=== PATIENT | male | born 1990 | race Hispanic/Latino ===

== ENCOUNTER 2019-06-29 17:57 | Emergency (ER) | payer SELFPAY ==
[2019-06-29 18:11] VITALS: TEMP 99.1
--- NOTE | 2019-06-29 18:17 | ED.PDOC ---
History of Present Illness - General Chief Complaint: Problem Stated Complaint: blood in urine,right groin pain Time Seen by Provider: 06/29/19 18:06 Source: patient Exam Limitations: no limitations - History of Present Illness Initial Comments: 28 yo M with hx of kidney stones presents for R flank pain onset 5 days ago, has now radiated into his abd, consistent with prior kidney stones in the past. Associated hematuria onset today. Associated n/v 2/2 pain, sharp pain when urinating. Reports good urine stream. Pt has always been able to pass his kidney stones on his own, has never had any procedures, is followed by a urologist who suggested that he defer from CT scans in the future 2/2 radiation. Denies f/c, cough, CP, SOB, diarrhea. Allergies/Adverse Reactions: Allergies Codeine Allergy (Verified 06/29/19 18:11) Ketorolac Tromethamine [From Toradol] Allergy (Verified 06/29/19 18:11) Home Medications: Ambulatory Orders Tamsulosin HCl [Flomax] 0.4 mg PO BEDTIME #14 cap 06/29/19 Tramadol HCl [Ultram] 50 mg PO Q6H PRN #6 tab 06/29/19 Review of Systems - Review of Systems Constitutional: Denies: chills, fever EENTM: States: no symptoms reported Respiratory: Denies: cough, short of breath Cardiology: Denies: chest pain, palpitations Gastrointestinal/Abdominal: States: abdominal pain, nausea, vomiting, other - R flank pain. Denies: diarrhea Genitourinary: States: hematuria, other - sharp pain when urinating. Denies: discharge, frequency Musculoskeletal: Denies: back pain, neck pain Skin: Denies: lesions, rash Neurological: Denies: headache, numbness, weakness Endocrine: Denies: increased thirst, increased urine Hematologic/Lymphatic: Denies: easy bleeding, easy bruising Past Medical History (General) - Patient Medical History Hx Stroke: No Hx Congestive Heart Failure: No Hx Diabetes: No Surgical History: appendectomy - Vaccination History Hx Influenza Vaccination: Yes - Social History Hx Tobacco Use: Yes Family Medical History - Family History Father Family History: Unknown Living Status: Unknown Physical Exam - Physical Exam General Appearance: Alert, Comfortable, No apparent distress, Well Developed, Well Nourished Neck: full range of motion, supple Respiratory: lungs clear, normal breath sounds, no respiratory distress, no accessory muscle use Cardiovascular/Chest: normal peripheral pulses, regular rate, rhythm, no edema, no gallop, no JVD, no murmur Peripheral Pulses: radial,right: 2+, radial,left: 2+ Gastrointestinal/Abdominal: normal bowel sounds, non tender, soft, no organomegaly, no pulsatile mass Back Exam: normal inspection, no CVA tenderness, no vertebral tenderness Extremity: normal range of motion, non-tender, normal inspection, no pedal edema, no calf tenderness Neurologic: no motor/sensory deficits, alert, normal mood/affect Skin Exam: normal color, warm/dry Lymphatic: no adenopathy Progress - Progress Progress: I have explained and reviewed all results with the pt. Pt is well appearing, resting comfortably in chair, pain controlled, sonido po. Has urinary strainer and nausea medication at home. I explained that emergent conditions may arise and to return to the ER for new, worsening, or any persistent conditions including but not limited to f/c, intractable n/v, abd pain. I've explained the importance of f/u for recheck, has urologist to follow up with. All questions and concerns addressed at this time. Pt understands and agrees with plan. Pt well appearing, NAD, is stable for discharge. Pam Manley MD Emergency Medicine Physician Billing Number [id number] - Results/Orders Results/Orders: 06/29/19 18:10 Urine Culture Stat Laboratory Results - last 24 hr 06/29/19 06/29/19 06/29/19 18:10 18:29 18:29 WBC 5.6 RBC 4.77 Hgb 13.4 L Hct 39.7 L MCV 83.4 MCH 28.2 MCHC 33.8 RDW 15.3 H Plt Count 325 MPV 9.2 Absolute Neuts (auto) 3.50 Absolute Lymphs (auto) 1.60 Absolute Monos (auto) 0.40 Absolute Eos (auto) 0.00 Absolute Basos (auto) 0.00 Neutrophils % 62.8 Lymphocytes % 29.4 Monocytes % 6.6 Eosinophils % 0.5 L Basophils % 0.7 Sodium 140 Potassium 3.7 Chloride 108 Carbon Dioxide 22 Anion Gap 13.7 BUN 14 Creatinine 0.75 BUN/Creatinine Ratio 18.7 Random Glucose 97 Serum Osmolality 279.8 Calcium 9.8 Total Bilirubin 0.5 AST 19 ALT 22 Alkaline Phosphatase 45 Serum Total Protein 7.9 Albumin 4.4 Globulin 3.5 Albumin/Globulin Ratio 1.3 Urine Color Red Urine Appearance Cloudy Urine pH 7.5 Ur Specific [place] 1.020 Urine Protein 30 Urine Glucose (UA) Negative Urine Ketones Negative Urine Blood Large H Urine Nitrite Negative Urine Bilirubin Negative Urine Urobilinogen 0.2 Ur Leukocyte Esterase Negative Urine RBC Tntc H Urine WBC Obscured by rbc's H Ur Epithelial Cells 1-3 Urine Bacteria 0 KUB: EXAM: KUB CLINICAL INDICATION: Kidney stone COMPARISON: There is no previous study for comparison. FINDINGS: A single view of the abdomen was obtained. There is a nonspecific bowel gas pattern with no radiographic evidence of bowel obstruction. There are no dilated loops of small bowel. There is no evidence of pneumoperitoneum or pathologic calcifications. IMPRESSION: No evidence of an acute intraabdominal process. Electronically signed by: Jethro Ray MD 06/29/2019 6:48 PM [employer] Vital Signs - 24 hr 06/29/19 18:07 Temperature 99.1 F Pulse Rate [ 94 H Right Brachial] Respiratory 20 Rate Blood Pressure 167/99 [Right Arm] O2 Sat by Pulse 99 Oximetry Departure - Departure Clinical Impression: Urolithiasis Qualifiers: Urinary calculus location: ureter Qualified Code(s): N20.1 - Calculus of ureter Time of Disposition: 19:15 Disposition: Discharge to Home or Self Care Health Concerns: Condition: fair Departure Forms: ED Discharge - Pt. Copy, Patient Portal Self Enrollment Instructions: DI for Kidney Stones Prescriptions: Tamsulosin HCl [Flomax] 0.4 mg PO BEDTIME #14 cap Tramadol HCl [Ultram] 50 mg PO Q6H PRN #6 tab PRN Reason: Pain Home Medications: Ambulatory Orders Tamsulosin HCl [Flomax] 0.4 mg PO BEDTIME #14 cap 06/29/19 Tramadol HCl [Ultram] 50 mg PO Q6H PRN #6 tab 06/29/19 Additional Instructions: Follow up: [facility] As needed, if symptoms worsen Your urologist Make appointment in two days for follow up
[2019-06-29] MEDS ORDERED: ACETAMINOPHEN IV 1000MG 100 ML ONE (18:42)
--- NOTE | 2019-06-29 18:49 | RAD ---
EXAM: KUB CLINICAL INDICATION: Kidney stone COMPARISON: There is no previous study for comparison. FINDINGS: A single view of the abdomen was obtained. There is a nonspecific bowel gas pattern with no radiographic evidence of bowel obstruction. There are no dilated loops of small bowel. There is no evidence of pneumoperitoneum or pathologic calcifications. IMPRESSION: No evidence of an acute intraabdominal process. Electronically signed by: Jethro Ray MD 06/29/2019 6:48 PM [employer]IST[employer] RN
[2019-06-29] MEDS: ACETAMINOPHEN IV 1000MG 1,000 MG in PREMIX BOTTLE 1 BOTTLE IVPB ONE (18:50)
[2019-06-29] MEDS: SODIUM CHLORIDE 0.9% 1000ML 1,000 ML IVS ONE (18:51)
[2019-06-29 19:32] VITALS: BP 147/87; O2SAT 100
== END 2019-06-29 19:45 | disposition home or self-care (01) ==
LOC: ER 17:57 → EDSEX 17:57 → ER 19:45
DX: N20.1 Calculus of ureter (principal); R31.0 Gross hematuria; Z90.49 Acquired absence of other specified parts of digestive tract; Z87.891 Personal history of nicotine dependence; Z88.5 Allergy status to narcotic agent; Z87.442 Personal history of urinary calculi
CPT/HCPCS: 36415; 74018; 80053; 81001; 85025; 87086; J7030